=== PATIENT | male | born 1950 | race Caucasian/White ===

== ENCOUNTER 2020-09-06 11:00 | Outpatient (CLI) | payer OTHER, SELFPAY | END 2020-09-06 11:01 | disposition home or self-care (01) | LOC: SLEEP 09-07 16:35 | PROVIDERS: PCP Internal Medicine Critical Care Medicine; Visit Provider Internal Medicine Critical Care Medicine | DX: J44.9 Chronic obstructive pulmonary disease, unspecified (principal) | CPT/HCPCS: 87635; 94762 ==

== ENCOUNTER 2020-09-11 08:29 | Outpatient (CLI) | payer OTHER, SELFPAY ==
--- NOTE | 2020-09-11 09:09 | USCV_ITS ---
Mikel Cornell Age: 69 Gender: M : 1950 Exam Date: 09/11/2020 09:39 Ordering Phys: Gisela Galarza MD Technologist: Camron Sanchez [place] [facility] [place]ication: SOB CHF BP: 105 / 71 HR: 80 Rhythm: Sinus Technical Quality: Fair MEASUREMENTS (Male / Female) Normal Values 2D ECHO LV Diastolic Diameter PLAX 4.0 cm 4.2 - 5.9 / 3.9 - 5.3 cm LV Systolic Diameter PLAX 2.5 cm IVS Diastolic Thickness 1.8 cm 0.6 - 1.0 / 0.6 - 0.9 cm IVS Systolic Thickness 2.0 cm LVPW Diastolic Thickness 1.5 cm 0.6 - 1.0 / 0.6 - 0.9 cm LVPW Systolic Thickness 2.0 cm LVOT Diameter 2.1 cm LV Ejection Fraction 2D Teich 67.9 % LV Ejection Fraction MOD 2C 55.2 % LV Ejection Fraction 2C AL 55.0 % LA Diameter 2.5 cm LA Width 2.9 cm LA Height 3.3 cm RA Width 3.6 cm RA Height 4.8 cm Aorta at Sinotubular Diameter 3.2 cm M-MODE LV Diastolic Diameter MM 6.2 cm 4.2 - 5.9 / 3.9 - 5.3 cm LV Systolic Diameter MM 3.8 cm LV Ejection Fraction MM Teich 67.7 % IVS Diastolic Thickness MM 1.3 cm 0.6 - 1.0 / 0.6 - 0.9 cm IVS Systolic Thickness MM 2.4 cm LVPW Diastolic Thickness MM 0.9 cm 0.6 - 1.0 / 0.6 - 0.9 cm LVPW Systolic Thickness MM 2.0 cm Aortic Annulus Diameter 3.5 cm LA Ao Ratio MM 0.7 MV E Point Septal Separation 0.9 cm DOPPLER AV Peak Velocity 130.0 cm/s LVOT Peak Velocity 80.0 cm/s AV Area Cont Eq vti 2.3 cm squared AV Area Cont Eq pk 2.1 cm squared MV Area PHT 3.9 cm squared Mitral E to A Ratio 0.7 MV E' Velocity 31.0 cm/s Mitral E to MV E' Ratio 8.1 Mitral E to LV E' Lateral Ratio 8.3 Mitral E to LV E' Septal Ratio 8.1 TR Peak Velocity 259.2 cm/s TR Peak Gradient 26.9 mmHg Right Atrial Pressure 3.0 mmHg Pulmonary Artery Systolic Pressu 29.9 mmHg PV Peak Velocity 82.0 cm/s RV Acceleration Time 0.1 s RV Ejection Time 0.3 s RV AcT/ET 0.4 FINDINGS Left Ventricle Normal left ventricular cavity size. Normal left ventricular systolic function. No regional wall motion abnormalities. Left ventricular ejection fraction is estimated at 67 %. Grade I/IV diastolic dysfunction (abnormal relaxation filling pattern), normal to mildly elevated filling pressures. Right Ventricle The right ventricle is normal in size and function. Right Atrium The right atrium is normal in size. Left Atrium The left atrium is normal in size. Mitral Valve Moderately thickened mitral valve. No mitral valve stenosis. Mild mitral valve regurgitation. Aortic Valve Moderate aortic valve calcification. No aortic valve stenosis. Mild aortic valve regurgitation. Tricuspid Valve Structurally normal tricuspid valve without significant stenosis or regurgitation. Pulmonary artery systolic pressure is normal. Pulmonic Valve Structurally normal pulmonic valve without significant stenosis. There is no pulmonic regurgitation. Pericardium Normal pericardium without effusion. Aorta Normal ascending aorta dimension. CONCLUSIONS 1-Normal left ventricular cavity size. Normal left ventricular systolic function. No regional wall motion abnormalities. Left ventricular ejection fraction is estimated at 67 %. Grade I/IV diastolic dysfunction (abnormal relaxation filling pattern), normal to mildly elevated filling pressures. 2-Moderate aortic valve calcification. No aortic valve stenosis. Mild aortic valve regurgitation. 3-Moderately thickened mitral valve. No mitral valve stenosis. Mild mitral valve regurgitation. 4-There is no pericardial effusion. 5-Pulmonary artery systolic pressure is within normal limits. 6-Right atrial pressure is around 5 mm of mercury. 7-There are no prior echocardiogram studies to compare. Dar Matute MD (Electronically Signed) Final Date: 20 September 2020 18:41 S
[2020-09-11 09:15] VITALS: BP 109/77; BP 116/80
--- NOTE | 2020-09-11 13:24 | PFTS_ITS ---
Date of Study:09/11/20 Date of Dictation: 09/13/2020 MECHANICS: Forced vital capacity (FVC) is reduced 65%. Prebronchodilator forced expiratory volume in one second (FEV1) is reduced 39%. FEV1/FVC is 45. Postbronchodilator study not performed FLOW VOLUME LOOP: Sloping of expiratory limb of flow volume loop suggestive of obstructive airways . LUNG VOLUMES: Total lung capacity (TLC) is reduced 69%. Residual volume (RV) is slightly increased to 124% suggestive of mild air trapping. RV/TLC 172% is suggestive of moderate hyperinflation. DIFFUSING CAPACITY FOR CARBON MONOXIDE: Moderately reduced 51% . INTERPRETATION: Overall pulmonary function test is consistent with obstructive ventilatory defect with moderate gas transfer defect. Although her total lung capacity 69% suggestive of coexisting mild restrictive disease. Please correlate clinically MTDD
== END 2020-09-11 08:30 | disposition home or self-care (01) ==
LOC: RT 08:32
PROVIDERS: PCP Internal Medicine Critical Care Medicine; Visit Provider Internal Medicine Critical Care Medicine
DX: J44.9 Chronic obstructive pulmonary disease, unspecified (principal); I50.9 Heart failure, unspecified
CPT/HCPCS: 93306; 94010; 94618; 94726; 94729

== ENCOUNTER → 2021-10-04 13:31 | Outpatient (BNVA) | payer OTHER, SELFPAY | PROVIDERS: Visit Provider Internal Medicine Critical Care Medicine | DX: J44.9 Chronic obstructive pulmonary disease, unspecified (principal); G47.34 Idiopathic sleep related nonobstructive alveolar hypoventilation; Z87.891 Personal history of nicotine dependence; I10 Essential (primary) hypertension | CPT/HCPCS: 99214 ==

== ENCOUNTER → 2022-04-08 09:15 | Outpatient (BNVA) | payer OTHER, SELFPAY | PROVIDERS: PCP Internal Medicine; Visit Provider Internal Medicine Critical Care Medicine | DX: J44.9 Chronic obstructive pulmonary disease, unspecified (principal); G47.34 Idiopathic sleep related nonobstructive alveolar hypoventilation; R06.02 Shortness of breath; Z87.891 Personal history of nicotine dependence; I34.0 Nonrheumatic mitral (valve) insufficiency; I35.1 Nonrheumatic aortic (valve) insufficiency | CPT/HCPCS: 99214 ==

== ENCOUNTER → 2023-01-06 09:51 | Outpatient (BNVA) | payer OTHER, SELFPAY | PROVIDERS: PCP Internal Medicine; Visit Provider Internal Medicine Pulmonary Disease | DX: J44.9 Chronic obstructive pulmonary disease, unspecified (principal); G47.34 Idiopathic sleep related nonobstructive alveolar hypoventilation; Z87.891 Personal history of nicotine dependence; I08.0 Rheumatic disorders of both mitral and aortic valves | CPT/HCPCS: 99214 ==

== ENCOUNTER → 2023-10-06 09:45 | Outpatient (BNVA) | payer OTHER, SELFPAY | PROVIDERS: PCP Internal Medicine; Visit Provider Internal Medicine Pulmonary Disease | DX: J43.2 Centrilobular emphysema (principal); G47.34 Idiopathic sleep related nonobstructive alveolar hypoventilation; Z99.81 Dependence on supplemental oxygen | CPT/HCPCS: 99214 ==

== ENCOUNTER → 2024-11-25 14:48 | Outpatient (BNVA) | payer OTHER, SELFPAY | PROVIDERS: PCP Internal Medicine; Referring Provider Nurse Practitioner Family; Visit Provider Specialist | DX: G93.89 Other specified disorders of brain (principal) | CPT/HCPCS: 36415; 82607; 83520; 99205 ==

== ENCOUNTER 2024-12-02 14:57 | Outpatient (CLI) | payer OTHER, SELFPAY | END 2024-12-02 14:58 | disposition home or self-care (01) | LOC: LAB 14:59 | PROVIDERS: PCP Internal Medicine; Visit Provider Specialist | DX: G93.89 Other specified disorders of brain (principal) | CPT/HCPCS: 36415; 83520 ==

== ENCOUNTER → 2025-03-07 10:37 | Outpatient (BNVA) | payer OTHER, SELFPAY | PROVIDERS: PCP Internal Medicine; Visit Provider Specialist | DX: G93.89 Other specified disorders of brain (principal); F02.C0 Dementia in other diseases classified elsewhere, severe, without behavioral disturbance, psychotic disturbance, mood disturbance, and anxiety | CPT/HCPCS: 62270; 80503; 82945; 84157; 87070; 87075; 87205; 89050; 99215 ==

== ENCOUNTER → 2025-05-24 14:12 | Outpatient (BNVA) | payer OTHER, SELFPAY | PROVIDERS: PCP Internal Medicine; Visit Provider Specialist | DX: G93.89 Other specified disorders of brain (principal); F02.C0 Dementia in other diseases classified elsewhere, severe, without behavioral disturbance, psychotic disturbance, mood disturbance, and anxiety | CPT/HCPCS: 62270; 80503; 82945; 84157; 87070; 87075; 87205; 89050; 99215 ==